=== PATIENT | female | born 1980 | race Caucasian/White ===

== ENCOUNTER 2017-09-29 20:04 | Emergency (ER) | payer MEDICARE, BC, MEDICAID ==
[2017-09-29 21:45] LABS: ADD MAN DIFF? NO
[2017-09-29 21:47] LABS: BASOPHILS % 0.4 % (0.0-2.0); EOSINOPHILS # 0.3 10^3/ul (0.0-0.5); EOSINOPHILS % 2.7 % (0.0-7.0); HEMATOCRIT 41.6 % (37.0-47.0); HEMOGLOBIN 13.5 g/dl (12.0-16.0); LYMPHOCYTES # 3.2 10^3/ul (0.8-2.9); LYMPHOCYTES % 28.6 % (15.0-51.0); MEAN CORPUSCULAR HEMOGLOBIN 25.2 pg (29.0-33.0); MEAN CORPUSCULAR HGB CONC 32.5 g/dl (32.0-37.0); MEAN CORPUSCULAR VOLUME 77.8 fl (82.0-101.0); MEAN PLATELET VOLUME 8.8 fl (7.4-10.4); MONOCYTE # 0.9 10^3/ul (0.3-0.9); NEUTROPHIL # 6.8 10^3/ul (1.6-7.5); NEUTROPHILS % 59.7 % (39.0-77.0); PLATELET COUNT 440 10^3/UL (140-415); RED BLOOD COUNT 5.35 10^6/ul (4.20-5.40)
[2017-09-29 21:47] LABS: WHITE BLOOD COUNT 11.3 10^3/ul (4.8-10.8)
[2017-09-29] MEDS: ONDANSETRON 4 MG INJ IV ×2 (21:53→22:44)
[2017-09-29] MEDS: SOD CHLORIDE 0.9% 1,000 ML IV (21:53)
[2017-09-29] MEDS: CHLORDIAZEPOXIDE 25 MG CAP PO (21:57)
[2017-09-29 22:08] LABS: ANION GAP 19 (8-16); BLOOD UREA NITROGEN 12 mg/dl (7-20); CALCIUM 9.3 mg/dl (8.4-10.2); CARBON DIOXIDE 21 mmol/L (21-31); CHLORIDE 104 mmol/L (97-110); CREATININE 0.74 mg/dl (0.44-1.00); GLUCOSE 103 mg/dl (70-220); POTASSIUM 4.3 mmol/L (3.5-5.1); SODIUM 140 mmol/L (135-144)
[2017-09-29] MEDS: DIAZEPAM 5 MG TAB PO (22:44)
== END 2017-09-29 23:30 | disposition home or self-care (01) ==
LOC: E/R 20:04
DX: F13.230 Sedative, hypnotic or anxiolytic dependence with withdrawal, uncomplicated (principal)
CPT/HCPCS: 80048; 81025; 85025; 96361; 96374; 96376; 99284-25

== ENCOUNTER 2017-12-28 18:43 | Emergency (ER) | payer SELFPAY, BC, MEDICAID, MEDICARE | END 2017-12-28 20:05 | disposition left against medical advice (07) | LOC: E/R 18:43 | DX: Z53.21 Procedure and treatment not carried out due to patient leaving prior to being seen by health care provider (principal) | CPT/HCPCS: 93005 ==